=== PATIENT | female | born 1975 | race Caucasian/White ===

== ENCOUNTER 2023-03-16 08:20 | Day surgery (SDC) | payer OTHER ==
[~2023-03-16 08:20] MED LIST: Lactated Ringers 1,000 ML IV SCH; Propofol 200 MG/20 ML SDV ONE; fentaNYL 100 MCG/2 ML SDV ONE; propofoL 50 ML ONE
[2023-03-16] MEDS ORDERED: fentaNYL 50 MCG/ML SDV IVPUSH PRN (08:39)
[2023-03-16] MEDS ORDERED: Metoclopramide 10 MG/2 ML SDV IVPUSH PRN (08:39)
[2023-03-16] MEDS ORDERED: Naloxone 0.4 MG/ML SDV IVPUSH PRN (08:39)
[2023-03-16] MEDS ORDERED: Morphine 2 MG/ML SYRINGE IVPUSH PRN (08:39)
[2023-03-16] MEDS ORDERED: droPERidol 5 MG/2 ML SDV IVPUSH PRN (08:39)
[2023-03-16] MEDS ORDERED: HYDROmorphone 1 MG/ML Syringe IVPUSH PRN (08:39)
[2023-03-16] MEDS ORDERED: Albuterol 0.083% 2.5 MG/3 ML Neb Soln NEB PRN (08:39)
[2023-03-16] MEDS ORDERED: Ondansetron 4 MG/2 ML SDV IVPUSH PRN (08:39)
[2023-03-16 08:50] LABS: HEMOGLOBIN 12.9 g/dL (12.0-16.0); MEAN CORPUSCULAR HEMOGLOBIN 26.3 pg (27.0-32.0); MEAN CORPUSCULAR HGB CONC 33.1 g/dL (31.0-37.0); MEAN CORPUSCULAR VOLUME 79.4 fL (80.0-98.0); MEAN PLATELET VOLUME 9.4 fL (7.40-12.00); RED BLOOD CELL COUNT 4.91 M/uL (4.30-5.90); WHITE BLOOD CELL COUNT,WBC 6.33 K/uL (4.0-11.0)
[2023-03-16 09:43] LABS: A/G RATIO 1.1 (0.9-1.6); ALBUMIN 3.7 g/dL (3.4-5.0); BILIRUBIN TOTAL 0.3 mg/dL (0.2-1.0); CALCIUM 8.6 mg/dL (8.5-10.1); CARBON DIOXIDE,CO2 26.2 mmol/L (21.0-32.0); CREATININE 0.7 mg/dL (0.6-1.0); EST CRCL DRUG DOSING (CG) 79.42 mL/min; POTASSIUM,K 4.2 mmol/L (3.5-5.1); PROTEIN TOTAL,TP 7.1 g/dL (6.4-8.2)
[2023-03-16] MEDS ORDERED: Acetaminophen/oxyCODONE 325-5 MG Tab PO PRN (10:24)
[2023-03-16] MEDS ORDERED: ePHEDrine 50 MG/ML SDV ONE (10:26)
[2023-03-16] MEDS ORDERED: Ondansetron 4 MG/2 ML SDV ONE (10:26)
[2023-03-16] MEDS ORDERED: Ketorolac 30 MG/ML SDV ONE (10:26)
[2023-03-16] MEDS ORDERED: Dexamethasone 4 MG/ML 5 ML MDV ONE (10:26)
== END 2023-03-16 11:30 | disposition home or self-care (01) ==
LOC: MW.SDS 08:20
PROVIDERS: ATTEND Obstetrics & Gynecology
DX: N84.0 Polyp of corpus uteri (principal); N93.9 Abnormal uterine and vaginal bleeding, unspecified; E78.00 Pure hypercholesterolemia, unspecified; E11.9 Type 2 diabetes mellitus without complications; Z79.84 Long term (current) use of oral hypoglycemic drugs; Z90.49 Acquired absence of other specified parts of digestive tract; Z98.890 Other specified postprocedural states; Z79.899 Other long term (current) drug therapy
CPT/HCPCS: 36415; 58558; 80053; 85027; J0131; J1100; J1885; J2405; J2704; J3010; J7120; 00952; J3490